=== PATIENT | male | born 1990 | race Caucasian/White ===

== ENCOUNTER → 2019-01-30 | Outpatient (CLI) | payer OTHER ==
--- NOTE | 2019-01-30 14:55 | NM ---
EXAMINATION TYPE: NM bone/joint limited DATE OF EXAM: 01/30/2019 COMPARISON: Outside x-rays dated 10/14/2018 HISTORY: Low back pain TECHNIQUE: After the intravenous administration of 24.1 mCi Tc 99m MDP. Images acquired 3.5 hours p ost injection. Multiple views of lumbar spine and pelvis are submitted. There is a curvature of the vertebral column. No intense areas of increased or reduced uptake identif ied. There is mild increased uptake at L5 on the right which likely corresponds to the area of spondy lolysis. IMPRESSION: Mild increased uptake L5 on the right likely corresponds to the area of spondylolysis see n by outside x-ray. Also suspect a spondylolysis on the left at this level.
== END | disposition home or self-care (01) ==
LOC: RADNMMAIN 09:47
PROVIDERS: ATTEND Orthopaedic Surgery Orthopaedic Surgery of the Spine
DX: M43.06 Spondylolysis, lumbar region (principal); M41.86 Other forms of scoliosis, lumbar region; E66.9 Obesity, unspecified; F17.218 Nicotine dependence, cigarettes, with other nicotine-induced disorders
CPT/HCPCS: 78300; A9503